=== PATIENT | female | born 1950 | race Caucasian/White ===

== ENCOUNTER → 2020-04-29 | Outpatient (CLI) | payer MEDICARE ==
[~2020-04-29] MED LIST: ATORVASTATIN CA40 M1 PO; CHLO25B PO; ERGO400 PO; GLIP5 PO; LOSA50 PO; LOSARTAN POTAS100 MG PO; METFORMIN HCL1000 M6 PO
== END | disposition home or self-care (01) ==
LOC: LAB 08:26 → LAB SHORT 08:26
DX: D48.5 Neoplasm of uncertain behavior of skin (principal)
CPT/HCPCS: 88305

== ENCOUNTER 2020-05-15 10:13 | Emergency (ER) | payer MEDICARE ==
[~2020-05-15] VITALS: Ht 170.2 cm; Wt 95.2 kg
[2020-05-15] MEDS ORDERED: ATORVASTATIN CA40 M1 PO (10:23)
[2020-05-15] MEDS ORDERED: CHLO25B PO (10:24)
[2020-05-15] MEDS ORDERED: METFORMIN HCL1000 M6 PO (10:24)
[2020-05-15] MEDS ORDERED: LOSA50 PO (10:24)
== END 2020-05-15 11:30 | disposition home or self-care (01) ==
LOC: ER 10:13
DX: S16.1XXA Strain of muscle, fascia and tendon at neck level, initial encounter (principal); S50.02XA Contusion of left elbow, initial encounter; S60.221A Contusion of right hand, initial encounter; I10 Essential (primary) hypertension; E11.9 Type 2 diabetes mellitus without complications; E78.00 Pure hypercholesterolemia, unspecified; Z79.84 Long term (current) use of oral hypoglycemic drugs; Z79.899 Other long term (current) drug therapy; V43.53XA Car driver injured in collision with pick-up truck in traffic accident, initial encounter; Y92.410 Unspecified street and highway as the place of occurrence of the external cause
CPT/HCPCS: 72040; 73070; 73130; 99283-25

== ENCOUNTER 2020-06-18 07:34 | Day surgery (SDC) | payer MEDICARE ==
[~2020-06-18] VITALS: Ht 167.6 cm; Wt 94.1 kg
[~2020-06-18 07:34] MED LIST changes: -ERGO400 PO; -GLIP5 PO; -LOSARTAN POTAS100 MG PO
== END 2020-06-18 10:22 | disposition home or self-care (01) ==
LOC: ORSCSDS 07:34
PROVIDERS: Orthopaedic Surgery
PROC: 0JBP0ZZ Excision of Left Lower Leg Subcutaneous Tissue and Fascia, Open Approach (ICD-10-PCS; principal; 2020-06-18 08:45)
DX: D21.20 Benign neoplasm of connective and other soft tissue of unspecified lower limb, including hip (principal); E11.9 Type 2 diabetes mellitus without complications; I10 Essential (primary) hypertension; E66.9 Obesity, unspecified; Z68.33 Body mass index [BMI] 33.0-33.9, adult; Z79.84 Long term (current) use of oral hypoglycemic drugs; Z79.899 Other long term (current) drug therapy
CPT/HCPCS: 82947; 88304; J0690; J2250; J2704; J3010; J7120

== ENCOUNTER 2020-10-21 08:33 | Observation (INO) | payer MEDICARE ==
[~2020-10-21] VITALS: Ht 167.6 cm; Wt 96.0 kg
[2020-10-21 09:20] LABS: BASOPHILS ABSOLUTE AUTO 0.04 K/mm3 (0.00-0.23); BASOPHILS PERCENT AUTO 0 % (0-2); EOSINOPHILS PERCENT AUTO 3 % (0-6); Hematocrit 40.3 % (33.0-51.0); IMMATURE GRAN ABSOLUTE AUTO 0.04 K/mm3 (0.00-0.10); IMMATURE GRAN PERCENT AUTO 0 % (0-1); LYMPHOCYTES ABSOLUTE AUTO 1.42 K/mm3 (0.84-5.20); LYMPHOCYTES PERCENT AUTO 13 % (21-46); MONOCYTES ABSOLUTE AUTO 0.83 K/mm3 (0.16-1.47); MONOCYTES PERCENT AUTO 8 % (4-13); Mean Corpuscular HGB 28.8 pg (26.0-34.0); Mean Corpuscular HGB Conc 32.3 g/dL (31.5-36.5); Mean Corpuscular Volume 89 fL (80-100); Mean Platelet Volume 11.4 fL (9.1-12.4); NEUTROPHILS ABSOLUTE AUTO 7.93 K/mm3 (1.96-9.15); NEUTROPHILS PERCENT AUTO 75 % (41-73); Platelet Count 228 K/mm3 (150-400); RDW Coefficient Variation 14.2 % (11.7-14.2); RDW Standard Deviation 45.9 fL (35.1-46.3); Red Blood Cell Count 4.51 M/mm3 (3.80-5.20); White Blood Cell Count 10.56 K/mm3 (4.00-11.30)
[2020-10-21 09:38] LABS: Alanine Aminotransfer (ALT/SGP 27 U/L (12-78); Albumin, Blood 3.2 g/dL (3.4-5.0); Albumin/Globulin Ratio 0.9 (0.8-1.8); Alk Phos 72 U/L (50-136); Anion Gap 8 mmol/L (6-16); Aspartate Aminotrans (AST/SGOT 10 U/L (12-37); Bilirubin, Total 0.4 mg/dL (0.1-1.0); Blood Urea Nitrogen 24 mg/dL (8-24); Bun/Creatinine Ratio 30.8 (12.0-20.0); CO2, Blood 27 mmol/L (21-32); Calcium, Blood 9.2 mg/dL (8.5-10.1); Chloride, Blood 105 mmol/L (98-108); Creatinine, Blood 0.78 mg/dL (0.40-1.00); Globulin, Blood 3.7 g/dL (2.2-4.0); Glomerular Filtration Rate >60 (60-); Glucose, Blood 213 mg/dL (70-99); Sodium, Blood 140 mmol/L (136-145); Total Protein, Blood 6.9 g/dL (6.4-8.2); Troponin I <0.015 ng/mL (0.000-0.040)
[2020-10-21 12:12] LABS: Source, Urine Voided
[2020-10-21 12:21] LABS: Appearance, Urine Clear (Clear); Bilirubin, Urine Neg (Neg); Blood, Urine Neg (Neg); Color, Urine Yellow (P-Yellow); Glucose Qualitative, Urine Neg (Neg); Ketones, Urine Neg (Neg); Leukocyte Esterase, Urine 1+ (Neg); Nitrite, Urine Neg (Neg); Protein, Urine Neg (Neg); Specific Gravity, Urine 1.015 (1.003-1.022); Urobilinogen, Urine NORM (Normal)
[2020-10-21 12:32] LABS: Bacteria Mod /hpf; Red Blood Cells, Urine 0-2 /hpf (0-2); Squamous Epithelial Cells Rare /hpf (Few); White Blood Cells, Urine 0-2 /hpf (0-5)
[2020-10-21] MEDS ORDERED: LOSARTAN POTAS100 MG PO (13:05)
[2020-10-21] MEDS ORDERED: GLIP5 PO (13:05)
[2020-10-21] MEDS ORDERED: ERGO400 PO (16:48)
== END 2020-10-21 18:07 | disposition home or self-care (01) ==
LOC: ER 08:33 → ERHOLD 08:34 → MEDS 16:24
PROVIDERS: Emergency Medicine; ADMIT Family Medicine
DX: R07.89 Other chest pain (principal); E11.9 Type 2 diabetes mellitus without complications; I10 Essential (primary) hypertension; N32.9 Bladder disorder, unspecified; Z87.81 Personal history of (healed) traumatic fracture; Z79.84 Long term (current) use of oral hypoglycemic drugs
CPT/HCPCS: 36415; 71045; 80053; 81001; 83880; 84484; 85025; 93005; 93010; 93017; 96361; 96372-59; 96374; 99285-25; A9270; J1650; J2405; J7030

== ENCOUNTER → 2021-01-05 | Outpatient (CLI) | payer MEDICARE ==
[~2021-01-05] MED LIST changes: +ERGO400 PO; +GLIP5 PO; +LOSARTAN POTAS100 MG PO
== END ==
LOC: LAB SHORT 18:06
DX: N39.0 Urinary tract infection, site not specified (principal)
CPT/HCPCS: 87077; 87086; 87186

== ENCOUNTER 2022-05-27 09:28 | Day surgery (SDC) | payer MEDICARE ==
[~2022-05-27] VITALS: Ht 167.6 cm; Wt 90.7 kg
[2022-05-27] MEDS ORDERED: Vitamin D1000 UNI1 (09:51)
[2022-05-27] MEDS ORDERED: QUERCETIN500 MG (09:51)
[2022-05-27] MEDS ORDERED: Vitamin C100 M1 (09:51)
== END 2022-05-27 12:20 | disposition home or self-care (01) ==
LOC: ORSCSDS 09:28
PROVIDERS: Student in an Organized Health Care Education/Training Program
PROC: 0DBL8ZX Excision of Transverse Colon, Via Natural or Artificial Opening Endoscopic, Diagnostic (ICD-10-PCS; principal; 2022-05-27 11:00)
PROC: 0DBM8ZX Excision of Descending Colon, Via Natural or Artificial Opening Endoscopic, Diagnostic (ICD-10-PCS; principal; 2022-05-27 11:00)
PROC: 0DBK8ZX Excision of Ascending Colon, Via Natural or Artificial Opening Endoscopic, Diagnostic (ICD-10-PCS; principal; 2022-05-27 11:00)
PROC: 0DBN8ZX Excision of Sigmoid Colon, Via Natural or Artificial Opening Endoscopic, Diagnostic (ICD-10-PCS; principal; 2022-05-27 11:00)
DX: Z12.11 Encounter for screening for malignant neoplasm of colon (principal); D12.3 Benign neoplasm of transverse colon; D12.4 Benign neoplasm of descending colon; D12.2 Benign neoplasm of ascending colon; K57.30 Diverticulosis of large intestine without perforation or abscess without bleeding; K64.8 Other hemorrhoids; K59.09 Other constipation; Z86.010 Personal history of colon polyps; E11.9 Type 2 diabetes mellitus without complications; I10 Essential (primary) hypertension; E78.5 Hyperlipidemia, unspecified; Z79.84 Long term (current) use of oral hypoglycemic drugs; Z79.899 Other long term (current) drug therapy
CPT/HCPCS: 82947; 88305; J2704; J7120

== ENCOUNTER 2022-09-18 17:34 | Emergency (ER) | payer MEDICARE ==
[~2022-09-18] VITALS: Ht 165.1 cm; Wt 72.6 kg
[~2022-09-18 17:34] MED LIST changes: +QUERCETIN500 MG; +Vitamin C100 M1; +Vitamin D1000 UNI1
[2022-09-18] MEDS ORDERED: ATOR20 PO (19:24)
[2022-09-18 20:00] VITALS: BP 145/77
== END 2022-09-18 20:12 | disposition home or self-care (01) ==
LOC: ER 17:34
DX: S79.911A Unspecified injury of right hip, initial encounter (principal); X50.1XXA Overexertion from prolonged static or awkward postures, initial encounter; Z79.899 Other long term (current) drug therapy; Z79.84 Long term (current) use of oral hypoglycemic drugs; I10 Essential (primary) hypertension; E11.9 Type 2 diabetes mellitus without complications; E78.5 Hyperlipidemia, unspecified
CPT/HCPCS: 73502; 99283-25

== ENCOUNTER → 2022-12-01 | Outpatient (CLI) | payer MEDICARE ==
[~2022-12-01] MED LIST changes: +ATOR20 PO
== END | disposition home or self-care (01) ==
LOC: LAB SHORT 12:23 → PLD 12:23
DX: D48.5 Neoplasm of uncertain behavior of skin (principal)
CPT/HCPCS: 88305

== ENCOUNTER 2024-03-08 15:29 | Emergency (ER) | payer OTHER, MEDICARE ==
[~2024-03-08] VITALS: Ht 167.6 cm; Wt 93.0 kg
[2024-03-08] MEDS ORDERED: Propofol 10mg/ml 20 ml Vial (Procedural) IV SCH (16:25)
[2024-03-08] MEDS ORDERED: FentaNYL Citrate 50 MCG/ML 2 ML Injection IV ONE (16:25)
[2024-03-08] MEDS ORDERED: Ondansetron HCl 2 MG / ML 2ML Vial IV ONE (16:25)
[2024-03-08 17:30] VITALS: BP 147/79
== END 2024-03-08 17:39 | disposition home or self-care (01) ==
LOC: ER 15:29
DX: S43.015A Anterior dislocation of left humerus, initial encounter (principal); I10 Essential (primary) hypertension; E11.9 Type 2 diabetes mellitus without complications; E78.5 Hyperlipidemia, unspecified; W01.0XXA Fall on same level from slipping, tripping and stumbling without subsequent striking against object, initial encounter; Z79.84 Long term (current) use of oral hypoglycemic drugs; Z79.899 Other long term (current) drug therapy
CPT/HCPCS: 23655; 73020; 73030; 96374; 96375; 99152; 99284-25; J2405; J2704; J3010

== ENCOUNTER 2025-01-25 10:18 | Day surgery (SDC) | payer MEDICARE ==
[~2025-01-25] VITALS: Ht 167.6 cm; Wt 82.0 kg
[2025-01-25] MEDS ORDERED: STOOL SOFTNERS (11:02)
[2025-01-25] MEDS ORDERED: Percocet 5-3251 EACH (11:24)
[2025-01-25] MEDS ORDERED: METO25ER PO (11:25)
[2025-01-25] MEDS ORDERED: Ondansetron HCl 2 MG / ML 2ML Vial ONE (12:53)
[2025-01-25 13:09] VITALS: BP 184/95
== END 2025-01-25 13:15 | disposition home or self-care (01) ==
LOC: ORSCSDS 10:18
PROVIDERS: Internal Medicine Gastroenterology
PROC: 0DBN8ZX Excision of Sigmoid Colon, Via Natural or Artificial Opening Endoscopic, Diagnostic (ICD-10-PCS; principal; 2025-01-25 12:00)
DX: K59.09 Other constipation (principal); R15.1 Fecal smearing; Z86.0101 Personal history of adenomatous and serrated colon polyps; K63.5 Polyp of colon; K57.30 Diverticulosis of large intestine without perforation or abscess without bleeding; K64.4 Residual hemorrhoidal skin tags; E11.9 Type 2 diabetes mellitus without complications; E78.5 Hyperlipidemia, unspecified; I10 Essential (primary) hypertension; Z79.84 Long term (current) use of oral hypoglycemic drugs; Z79.899 Other long term (current) drug therapy
CPT/HCPCS: 82947; 88305; J2405; J2704; J7120